=== PATIENT | female | born 1990 ===

== ENCOUNTER 2022-06-23 11:23 | Outpatient (CLI) | payer OTHER | END 2022-06-23 12:53 | disposition home or self-care (01) | LOC: PRENATAL 11:23 | PROVIDERS: ATTEND Obstetrics & Gynecology Maternal & Fetal Medicine | DX: O35.9XX0 Maternal care for (suspected) fetal abnormality and damage, unspecified, not applicable or unspecified (principal); O35.3XX0 Maternal care for (suspected) damage to fetus from viral disease in mother, not applicable or unspecified; O99.210 Obesity complicating pregnancy, unspecified trimester; Z3A.23 23 weeks gestation of pregnancy ==

== ENCOUNTER 2022-08-25 08:52 | Outpatient (CLI) | payer OTHER ==
[~2022-08-25 08:52] MED LIST: SYNTHROID75 MCG PO
== END 2022-08-25 17:50 | disposition home or self-care (01) ==
LOC: PRENATAL 08:52
PROVIDERS: ATTEND Obstetrics & Gynecology Maternal & Fetal Medicine
DX: O26.849 Uterine size-date discrepancy, unspecified trimester (principal); O99.210 Obesity complicating pregnancy, unspecified trimester; O35.9XX0 Maternal care for (suspected) fetal abnormality and damage, unspecified, not applicable or unspecified; Z3A.32 32 weeks gestation of pregnancy